=== PATIENT | female | born 1985 | race Two or more races ===

== ENCOUNTER 2024-11-09 19:19 | Emergency (ER) | payer OTHER, SELFPAY ==
[2024-11-09 19:21] VITALS: BP 128/97; PULSE 93; RESP 18; O2SAT 98; BMI 34.0
[2024-11-09 19:44] LABS: Appearance Urine Cloudy (Clear); Bilirubin Urine Negative (Negative); Blood Urine 1+ (Negative); Color Urine Yellow (Yellow); Glucose Urine Negative (Negative); Ketones Urine Negative (Negative); Leukocyte Esterase Urine 3+ (Negative); Nitrite Urine Positive (Negative); Protein Urine 1+ (Negative); Urobilinogen Urine 0.2 (0.2-1.0)
--- NOTE | 2024-11-09 19:51 | ED_ITS ---
HPI - Female Genitourinary General Time Seen by Provider: 19:51 Date Seen: 11/09/24 Chief complaint: Urogenital Problems, Female Stated complaint: burning when peeing Time Seen by Provider: 11/09/24 19:50 History of Present Illness HPI Narrative: Fabi is a very pleasant 39-year-old female previously healthy who comes to the emergency room for evaluation regarding painful urination that started today. Patient noted that she did have sexual activity 2 days ago. She notes the onset of painful urination today. She has a dull pain in her low back but has not had any fever chills or vomiting. She has not yet taken anything for discomfort. She has not noticed any blood in her urine. Related Data Home Medications ?Medication ?Instructions ?Recorded ?Confirmed hydroxyzine HCl 10 mg tablet 10 mg PO QHS 11/09/24 11/09/24 Allergies Allergy/AdvReac Type Severity Reaction Status Date / Time No Known Drug Allergies Allergy Verified 11/09/24 19:25 Review of Systems Status of ROS: Reports: 6 or more systems reviewed and unremarkable except as noted in History and below PFSH PFS Social History Smoking Status: Never smoker Do you use any of these nicotine containing products: None How often do you have a drink containing alcohol: never How often do you have six or more drinks on one occasion: Never AUDIT-C Alcohol total score: 0 Non-prescribed substance use: denies use Exam Narrative: Exam Narrative: Patient is alert and oriented. No acute distress. External ears eyes nose clear. Heart with regular rate and rhythm lungs are clear. Abdomen soft. No CVA tenderness with percussion. Moving all extremities. Const: Vital Signs, click to edit/add: Vital Signs - 24 hr 11/09/24 19:21 11/09/24 20:01 Temperature 98 F Pulse Rate [Right Pulse Oximeter] 93 Respiratory Rate 18 Blood Pressure [Ri ght Upper Arm] 128/97 H Pulse Oximetry 98 Oxygen Delivery Me thod Room Air Documenting provider has reviewed patient's vital signs: yes Course Course ED Course: Differential diagnosis includes but not limited to STI, cystitis, UTI, pyelonephritis. At this time patient has new onset of symptoms today, is absent of a fever or vomiting. Most likely represents a UTI but will add a GC chlamydia on to the urine sample as this is a new partner for the patient. Vital Signs Vital signs: Initial Vital Signs Pulse Rate 93 11/09/24 19:21 Pulse Rhythm Regular 11/09/24 19:21 Respiratory Rate 18 11/09/24 19:21 Blood Pressure 128/97 H 11/09/24 19:21 Blood Pressure Mean 107 H 11/09/24 19:21 Blood Pressure Position Sitting 11/09/24 19:21 Pulse Oximetry 98 11/09/24 19:21 Oxygen Delivery Method Room Air 11/09/24 19:21 Vital Signs Pulse Rate 93 11/09/24 19:21 Respiratory Rate 18 11/09/24 19:21 Blood Pressure 128/97 H 11/09/24 19:21 Pulse Oximetry 98 11/09/24 19:21 Oxygen Delivery Method Room Air 11/09/24 19:21 Temperature 98 F 11/09/24 20:01 Pulse Rate 93 11/09/24 19:21 Respiratory Rate 18 11/09/24 19:21 Blood Pressure 128/97 H 11/09/24 19:21 Pulse Oximetry 98 11/09/24 19:21 Oxygen Delivery Method Room Air 11/09/24 19:21 MDM - Female Genitourinary MDM Narrative Medical decision making narrative: 1. UTI-urinalysis is positive. Macrobid 100 mg p.o. b.i.d. x5 days via our [employer] machine. Recommend pushing fluids. One dose of Pyridium 200 mg is given in the ED prior to discharge. This should help significantly with the discomfort as the antibiotic is starting to work. Seek medical attention for fever vomiting and as needed. 2. Disposition-home at this time. I did add a GC chlamydia on to her urine sample and we will call her if these become positive. She does not think there is a reason that she would have an STI but this is a new partner. Lab Data Attestation: I reviewed the patient's lab results. Labs: Lab Results 11/09/24 Range/Units 19:28 Urine Color Yellow (Yellow) Urine Appearance Cloudy A (Clear) Urine pH 6.0 (5.0-8.5) Ur Specific [place] 1.020 (1.000-1.030) Urine Protein 1+ A (Negative) Urine Glucose (UA) Negative (Negative) Urine Ketones Negative (Negative) Urine Blood 1+ A (Negative) Urine Nitrite Positive A (Negative) Urine Bilirubin Negative (Negative) Urine Urobilinogen 0.2 (0.2-1.0) Ur Leukocyte Esterase 3+ A (Negative) Urine RBC 10-25 A (0-2) Urine WBC >100 A (0-5) Ur Squamous Epith Cells Few (None-Few) Urine Bacteria Moderate A (None) Discharge Plan Discharge Clinical Impression: Urinary tract infection Patient Disposition: Home, Self-Care Condition: Unchanged Additional Instructions: Start Macrobid tonight. I put that in our vending machine out front. Increase her fluid intake so that you are urinating frequently. You should have relief with pain of urination after the medication Pyridium in the ER tonight. Seek medical attention or return for fever, worsening symptoms and as needed. Prescriptions: No Action hydroxyzine HCl 10 mg tablet 10 mg PO QHS Stand Alone Forms: [employer] Info Instructions
[2024-11-09 19:58] LABS: Bacteria Urine Moderate; Squamous Epithelial Cell Urine Few (None-Few); WBC Urine >100 (0-5)
[2024-11-09 20:01] VITALS: TEMP 36.6
[2024-11-09] MEDS: PHENAZOPYRIDINE HCL 200 MG TABLET PO (20:05)
--- OUTSIDE RECORDS SUMMARY | 2024-11-09 20:09 | XMS_ITS | Encounter Summary ---
Author Organization [facility] Address [address] [place] [phone] Phone Care Team Providers Care Stacker And Sorter Operator Name Role Phone DecemberSHEILA Cook Primary Care Provider [phone] Reason for Visit * Reason Comments Sore Throat Encounter Details Date Type Department Care Team (Late st Contact Info) Description 09/26/2024 9:55 AM MARRIAGE COUNSELOR MINISTER Office Visit [facility] [address] [place] [address] Krysten Mccullough MD [address] [place], [place] [id number] Sore throat (Primary Dx); Nasal congestion Social History Tobacco Use Types Packs/Day Years Used Date Smoking Tobacco: Former Cigarettes Q uit: 02/18/2009 Smokeless Tobacco: Never Alcohol Use Standard Drinks/Week Comments No 0 (1 standard drink = 0.6 oz pur e alcohol) PHQ-2 Answer Date Recorded PHQ-2 Subtotal 0 07/27/2023 Comments No Sex and Gender Information Value Date Recorded Sex Assigned at Not on file Legal Sex Female 11:56 PM MARRIAGE COUNSELOR MINISTER Gender Identity Not on file Sexual Orientation Not on file documented as of this encounter Last Filed Vital Signs Vital Sign Reading Time Taken Comments Blood Pressure 111/77 09/26/2024 9:35 AM MARRIAGE COUNSELOR MINISTER Pulse 88 09/26/2024 9:35 AM MARRIAGE COUNSELOR MINISTER Temperature 36.9 C (98.4 F) 09/26/2024 9:35 AM MARRIAGE COUNSELOR MINISTER Respiratory Rate - - Oxygen Saturation 99% 09/26/2024 9:35 AM MARRIAGE COUNSELOR MINISTER Inhaled Oxygen Concentration - - Weight - - Height - - Body Mass Index - - documented in this encounter Patient Instructions * Patient Instructions* Krysten Mccullough MD - 09/26/2024 9:55 AM MARRIAGE COUNSELOR MINISTER Your tests are all negative today, please return in 2 days for repeat testing if symptoms worsen. Warm soups, tea, salt water gargles, tylenol as needed Zyrtec 10 mg as needed for nasal congestion Latest Reference Range & Units 09/26/24 09:40 Strep A Antigen Negative STREP, RAPID GROUP A ANTIGEN, [facility] ONLY Rpt COVID-19 Not Detected Not Detected Influenza A Not Detected Not Detected Influenza B Not Detected Not Detected RSV Not Detected Not Detected Rpt: View report in Results Review for more information IAGE COUNSELOR MINISTER IAGE COUNSELOR MINISTER IAGE COUNSELOR MINISTER documented in this encounter Progress Notes * Krysten Mccullough MD - 09/26/2024 9:55 AM CST [facility] Fabi Beck : 1985 Sex: female Medical Decision Making: ICD-10-CM 1. Sore throat J02.9 STREP, RAPID GROUP A ANTIGEN, [facility] ONLY THROAT GROUP A STREP CULTURE NPH COVID+FLU+RSV NPH COVID+FLU+RSV STREP, RAPID GROUP A ANTIGEN, [facility] ONLY 2. Nasal congestion R09.81 cetirizine (ZYRTEC) 10 mg oral tablet No follow-ups on file. History of Present Illness: Fabi Beck is a 39 y.o. female who presents for Patient Instructions: Your tests are all negative today, please return in 2 days for repeat testing if symptoms worsen. Warm soups, tea, salt water gargles, tylenol as needed Zyrtec 10 mg as needed for nasal congestion 1) sore throat - pt notes 2 day h/o ST. Pt denies cough, SOB, V/D or fever. Pt notes nasal congestion and denies rhinorrhea. Pt denies sick contacts. Pt notes significant sore throat and R sided MIKE. Viral panel/strep test negative today. 2) HTN - lisinopril 10 mg daily Sickle trait: hgb 13 Triage Note: Patient presents to clinic today for complaint of a sore throat. Symptoms started yesterday. Took Theraflu and halls cough drops for this but not helping much. Also feeling a little bit hot but unsure if she's had a temperature. Denies any known sick contacts. HME Last annual labs:05/07/24 Last murtaza: Last pap: OKQ: Would you like to become in the next year? Yes, No, Unsure or OK either way. BC: LMP: Sti scr: Last pap: Last Visit: ROS Vitals: 09/26/24 0935 BP: 111/77 Cuff Location: Left Arm Patient Position: Sitting Cuff Size: Adult - regular Pulse: 88 Temp: 36.9 ??C (98.4 ??F) SpO2: 99% Estimated body mass index is 33.37 kg/m?? as calculated from the following: Height as of 05/07/24: 1.57 m (5' 1.8). Weight as of 05/07/24: 82.2 kg (181 lb 4 oz). Physical Exam Constitutional: Appearance: Normal appearance. HENT: Head: Normocephalic and atraumatic. Right Ear: A middle ear effusion is present. Tympanic membrane is not injected. Left Ear: A middle ear effusion is present. Tympanic membrane is not injected. Nose: Congestion and rhinorrhea present. Rhinorrhea is clear. Right Turbinates: Swollen and pale. Left Turbinates: Swollen and pale. Right Sinus: No maxillary sinus tenderness. Left Sinus: Maxillary sinus tenderness present. Mouth/Throat: Mouth: Mucous membranes are moist. Pharynx: Uvula midline. Posterior oropharyngeal erythema present. Tonsils: No tonsillar exudate. Cardiovascular: Rate and Rhythm: Normal rate and regular rhythm. Heart sounds: Normal heart sounds. No murmur heard. No friction rub. No gallop. Pulmonary: Breath sounds: No wheezing, rhonchi or rales. Lymphadenopathy: Head: Right side of head: Submandibular adenopathy present. Left side of head: Submandibular adenopathy present. Neurological: Mental Status: She is alert. Results for orders placed or performed in visit on 09/26/24 NPH COVID+FLU+RSV Collection Time: 09/26/24 9:40 AM Result Value Ref Range COVID-19 Not Detected Not Detected Influenza A Not Detected Not Detected Influenza B Not Detected Not Detected RSV Not Detected Not Detected STREP, RAPID GROUP A ANTIGEN, [facility] ONLY Collection Time: 09/26/24 9:40 AM Result Value Ref Range Strep A Antigen Negative Strep A Screen performed at [facility] IAGE COUNSELOR MINISTER * Felisha Daly RN - 09/26/2024 9:30 AM CST Patient presents to clinic today for complaint of a sore throat. Symptoms started yesterday. Took Theraflu and halls cough drops for this but not helping much. Also feeling a little bit hot but unsure if she's had a temperature. Denies any known sick contacts. Swabbed for covid/flu/rsv and strep. Added to pool schedule. Felisha Daly RN, 09/26/2024 9:42 AM IAGE COUNSELOR MINISTER documented in this encounter Plan of Treatment Not on file documented as of this encounter Goals Goal Patient Goal Type Associated Problems Recent Progress Patient-Stated? Author Mental Health (Customize) Mental Health Other specified personality disorder (mixed personality features) No Pia Doran, TRINY Note: Treatment Plan: Borderline Personality Disorder/Black and White Thinking Goals: Learn and practice coping skills to deal with mood fluctuations Replace black and white thinking with increased ability to accept ambiguity Objectives: Develop and implement at least five coping skills to deal with mood fluctuations. Identify either/or thinking. Identify five things that are helpful in accepting ambiguity. Track and label at least two cognitive distortions that maintain negative self view and replace with reality based rational thoughts. Practice assertiveness skills at least daily. Verbalize understanding of the purpose and process of therapy. Treatment Strategies: Individual Therapy, Group Therapy and Medication Management Treatment Plan: Depression Goals: Develop healthy self views and patterns of thinking in order to prevent relapse into depression Improve interpersonal relationships to serve as a buffer against relapse and to provide support during depressive episodes Increase social activity and physical activity Improve self-esteem issues that may underlie depressed mood (see separate tx plan for low self-esteem Practice healthy coping skills Understand mental health symptoms and treatment Objectives: Identify at least five automatic thoughts that contribute to depressive schemas. Learn and practice labeling and restructuring of at least three cognitive distortions. Take medications as prescribed and follow up with necessary providers. Treatment Strategies: Individual Therapy and Medication Management documented as of this encounter Procedures Procedure Name Priority Date/Time Associated Diagnosis Comments STREP, RAPID GROUP A ANTIGEN, [facility] ONLY Routine 09/26/2024 9:40 AM MARRIAGE COUNSELOR MINISTER Sore throat NPH COVID+FLU+RSV Routine 09/26/2024 9:4 0 AM MARRIAGE COUNSELOR MINISTER Sore throat documented in this encounter Results * THROAT GROUP A STREP CULTURE (09/26/2024 9:40 AM MARRIAGE COUNSELOR MINISTER) Final Report No Beta hemolytic Streptococcus Group A, C, or G isolated. [facility] Throat Swab 09/26/2024 9:40 AM MARRIAGE COUNSELOR MINISTER 09/26/2024 1:58 PM MARRIAGE COUNSELOR MINISTER us Low Frausto II, MD LAB MICROBIOLOGY Ashia l Result [facility] [address] [id number] * NPH COVID+FLU+RSV (09/26/2024 9:40 AM MARRIAGE COUNSELOR MINISTER) COVID-19 Not Detected Not Detected [facility] Comment: Testing performed on [employer] GeneXpert using RT-PCR as authorized by the FDA under an Emergency Use Authorization (EUA) for Coronavirus Disease-2019 during the Public Health Emergency. A Non-Detected test result does not exclude the possibility of infection due to improper specimen collection or organisms that may be below the sensitivity of the test. Influenza A Not Detected Not Detected [facility] Influenza B Not Detected Not Detected [facility] Comment: Testing performed on [employer] Gene[employer]pert using RT-PCR as authorized by the FDA under an Emergency Use Authorization (EUA) for Coronavirus Disease-2019 during the Public Health Emergency. A Non-Detected test result does not exclude the possibility of infection due to improper specimen collection or organisms that may be below the sensitivity of the test. RSV Not Detected Not Detected [facility] Comment: Testing performed on [employer] Gene[employer]pert using RT-PCR as authorized by the FDA under an Emergency Use Authorization (EUA) for Coronavirus Disease-2019 during the Public Health Emergency. A Non-Detected test result does not exclude the possibility of infection due to improper specimen collection or organisms that may be below the sensitivity of the test. Nasopharyngeal Swab 09/26/19 9:40 AM MARRIAGE COUNSELOR MINISTER 09/26/2024 9:43 AM MARRIAGE COUNSELOR MINISTER Narrative [facility] - 09/26/2024 10:40 AM MARRIAGE COUNSELOR MINISTER Includes COVID, FLU and RSV Low Frausto II, MD LABORATORY Final Result Performing Organization Address [facility] de Phone Number [facility] [address] [place] [address] * STREP, RAPID GROUP A ANTIGEN, [facility] ONLY (09/26/2024 9:40 AM MARRIAGE COUNSELOR MINISTER) Strep A Antigen Negative [facility] Comment:This assay was perfo rmed using an FDA-cleared direct antigen test. Strep A Screen performed at [facility] Comment:Testing Performed at [facility] [address] [place] [address] Throat Swab 09/26/2024 9:40 AM MARRIAGE COUNSELOR MINISTER 09/26/2024 9:43 AM MARRIAGE COUNSELOR MINISTER Low Frausto II, MD LABORATORY Final Result Performing Organization Address [facility] de Phone Number [facility] [address] [place] [phone] documented in this encounter Visit Diagnoses Diagnosis Sore throat- Primary Acute pharyngitis Nasal congestion Other diseases of nasal cavity and sinuses documented in this encounter Additional Health Concerns Infection Onset Date Last Indicated Resolved Time SARS-CoV-2 Rule-Out 09/26/2024 09/26/2024 09/26/19 25 10:40 AM MARRIAGE COUNSELOR MINISTER Assessment Noted Time PHQ-9 Depression Total Score: 0 07/27/20 23 10:02 AM MARRIAGE COUNSELOR MINISTER PHQ-2 Depression Total Score: 0 07/27/20 23 10:02 AM MARRIAGE COUNSELOR MINISTER documented as of this encounter Care Teams Stacker And Sorter Operator Relationship Specialty Start Date End Date DecemberNADIA CNP [address] [place] [address] PCP - General Family Medicine 12/12/22 documented as of this encounter
--- OUTSIDE RECORDS SUMMARY | 2024-11-09 20:09 | XMS_ITS | Clinical Summary ---
Author Organization [facility] Address [address] [place] [id number] Care Team Providers Care Cell Cleaner Name Role Phone [place], [facility] Primary Ca re Provider [facility] Unavailabl e Allergies No known active allergies Medications TOPIRAMATE PO Take 50 mg by mouth 2 times daily Active Social History Tobacco Use Types Packs/Day Years Used Date Smoking Tobacco: Never Smokeless Tobacco: Never Alcohol Use Standard Drinks/Week Comments No 0 (1 standard drink = 0.6 oz pur e alcohol) Adolescent Education Answer Date Record ed Getting School Help Needed Not on file 05/12 Comments No Sex and Gender Information Value Date Recorded Sex Assigned at Not on file Legal Sex Female 5:14 PM WEB SITE ADMIN Gender Identity Not on file Sexual Orientation Not on file Last Filed Vital Signs Vital Sign Reading Time Taken Comments Blood Pressure 146/108 12/27/2022 1:57 AM CDT Pulse 90 12/27/2022 1:57 AM CDT Temperature 36.9 C (98.4 F) 12/26/2022 9:59 PM CDT Respiratory Rate 18 12/27/2022 1:57 AM CDT Oxygen Saturation 100% 12/27/2022 1:57 AM CDT Inhaled Oxygen Concentration - - Weight 81.6 kg (180 lb) 12/26/2022 9:59 PM CDT Height 154.9 cm (5' 1) 12/26/2022 9:59 PM CDT Body Mass Index 34.01 12/26/2022 9:59 PM CDT Plan of Treatment Health Maintenance Due Date Last Done Comments ADVANCE CARE PLANNING 1985 ANNUAL REVIEW OF HM ORDERS 1985 MAMMO SCREENING 1985 YEARLY PREVENTIVE VISIT 1987 HIV SCREENING 1999 HEPATITIS C SCREENING 2002 HEPATITIS B IMMUNIZATION (1 of 3 - 19+ 3-dose series) 2003 PAP 2005 DTAP/TDAP/TD IMMUNIZATION (1 - Tdap) 2009 COVID-19 Vaccine (1 - season) 2024 INFLUENZA VACCINE (#1) 2024 3, 09/20/2011, 09/20/2011, Additional history exists LIPID 2024 PHQ-2 (once per calendar year) 2024 DIABETES SCREENING 12/26/2025 12/26/2022 ZOSTER IMMUNIZATION (1 of 2) 2034 HPV IMMUNIZATION Aged Out No longer e ligible based on patient's age to complete this topic MENINGITIS IMMUNIZATION Aged Out No l onger eligible based on patient's age to complete this topic Pneumococcal Vaccine: Pediatrics (0 to 5 Years) and At-Risk Patients (6 to 49 Years) Aged Out No longer eligible based on patient's age to complete this topic Procedures Procedure Name Priority Date/Time Associated Diagnosis Comments COMPREHENSIVE METABOLIC PANEL STAT 12/26/2022 11:26 PM CDT from Last 3 Months or Most Recently Relevant to Health Maintenance Results * (ABNORMAL) Comprehensive metabolic panel (12/26/2022 11:26 PM CDT) Sodium 136 136 - 145 mmol/L 12/27/2022 12:10 AM CDT [facility] Potassium 3.7 3.4 - 5.3 mmol/L 12/27/2022 12:10 AM CDT [facility] Chloride 101 98 - 107 mmol/L 12/27/2022 12:10 AM CDT [facility] Carbon Dioxide (CO2) 25 22 - 29 mmol/L 12/27/2022 12:10 AM CDT [facility] Anion Gap 10 7 - 15 mmol/L 12/27/2022 12:10 AM CDT [facility] Urea Nitrogen 10.9 6.0 - 20.0 mg/dL 12/27/2022 12:10 AM CDT [facility] Creatinine 0.66 0.51 - 0.95 mg/dL 12/27/2022 12:10 AM CDT LABORATORY Calcium 9.4 8.6 - 10.0 mg/dL 12/27/2022 12:10 AM CDT LABORATORY Glucose 147(H) 70 - 99 mg/dL 12/27/2022 12:10 AM CDT [facility] Alkaline Phosphatase 102 35 - 104 U/L 12/27/2022 12:10 AM CDT LABORATORY AST 69(H) 10 - 35 U/L 12/27/2022 12:10 AM CDT LABORATORY Comment:Specimen is hemolyze d which can falsely elevate AST. Analysis of a non-hemolyzed specimen may result in a lower value. ALT 97(H) 10 - 35 U/L 12/27/2022 12:10 AM CDT LABORATORY Protein Total 7.3 6.4 - 8.3 g/dL 12/27/2022 12:10 AM CDT LABORATORY Albumin 4.5 3.5 - 5.2 g/dL 12/27/2022 12:10 AM CDT LABORATORY Bilirubin Total 0.2 <=1.2 mg/dL 12/27/2022 12:10 AM CDT LABORATORY GFR Estimate >90 >60 mL/min/1.7 3m2 12/27/2022 12:10 AM CDT LABORATORY Comment:eGFR calculated usin 2020 CKD-EPI equation. Blood BLOOD SPECIMEN / Unknown Venipuncture / Unknown 12/26/2022 11:26 PM CDT 12/26/2022 11:49 PM CDT Spencer Giordano MD LAB - BLOOD ORDERABLES Final Res ult LABORATORY [facility] [address] Lab (1st floor, no room number) [place] [address], [facility] [phone] from Last 3 Months or Most Recently Relevant to Health Maintenance Care Teams Cell Cleaner Relationship Specialty Start Date End Date [facility] [address] [place] [address] PCP - General 04/18/20 [facility] [address] [place] [address] 04/18/20
--- OUTSIDE RECORDS SUMMARY | 2024-11-09 20:09 | XMS_ITS | Referral Summary ---
Author Organization [facility] Address [address] [place] [address] Phone Care Team Providers Care Advertising Solicitor Name Role Phone December SHEILA ZUNIGA Primary Care Provider [phone] Source Comments [employer] is fully rolled out on [employer]. Last update 01/23/09.[facility] Encounters Date Type Department Care Team Description 10/28/2024 Orders Only [facility] [address] [place] [address] Vinita Murrell APRN, CNP 09/26/2024 9:43 AM DUAL RATE SUPERVISOR - 09/26/2024 11:59 PM DUAL RATE SUPERVISOR Hospital Encounter [facility] [address] [facility] [address] [place] [address] Low Frausto II, MD Reflab, Nph Discharge Disposition: Discharged to home or self care 09/26/2024 Travel 09/26/2024 9:55 AM DUAL RATE SUPERVISOR Office Visit [facility] [address] [place] [address] Krysten Mccullough MD Sore throat (Primary Dx); Nasal congestion from Last 3 Months Allergies No known active allergies Medications * Be aware that medications may not be up to date as of this document. Always verify current medications with patient. Multiple Vitamin (DAILY MULTIVITAMIN) oral TABSIndications :Nutrition disorder Take 1 tablet by mouth daily. 100 tablet 3 04/11/2024 1:48 PM CDT Active Combs-3 Fatty Acids (FISH OIL) 1200 MG oral capsuleIndicati ons:Nutrition disorder Take 1 capsule by mouth daily. 60 capsule 6 04/11/2024 1:48 PM CDT 3 Active albuterol (PROVENTIL HFA) 108 (90 BASE) mcg/act inhalation inhaler Inhale 2 puffs every 4 hours as needed for shortness of breath. 6.7 g 1 4 Active ibuprofen (MOTRIN;ADVIL) 400 mg oral TABS Take 1 tablet (400 mg) by mouth every 6 hours as needed for Pain. 60 tablet 2 09/19/2024 12:02 PM DUAL RATE SUPERVISOR 4 Active loratadine (CLARITIN) 10 mg oral tabletIndicatio ns:Medication refill TAKE ONE TABLET BY MOUTH EVERY DAY FOR ALLERGIES 90 tablet 3 09/19/2024 12:02 PM DUAL RATE SUPERVISOR 4 03/29/20 25 Active fluticasone propionate (FLONASE) 50 mcg/act nasal suspensionIndic ations:Nasal congestion Use 1 spray in each nostril daily. 16 g 8 09/19/2024 12:02 PM DUAL RATE SUPERVISOR 4 Active lisinopril (PRINIVIL; ZESTRIL) 5 mg oral tabletIndicatio ns:Benign essential HTN Take 2 tablets (10 mg) by mouth daily. 30 tablet 09/19/2024 12:02 PM DUAL RATE SUPERVISOR 4 Active cetirizine (ZYRTEC) 10 mg oral tabletIndicatio ns:Nasal congestion Take 1 tablet (10 mg) by mouth daily as needed for Allergy Symptoms. 30 tablet 09/26/2024 11:15 AM DUAL RATE SUPERVISOR 5 Active hydrOXYzine pamoate (VISTARIL) 25 mg oral capsule Take 1 capsule (25 mg) by mouth every 4 hours as needed. 90 capsule 3 5 Active hydrOXYzine (ATARAX;VISTARI L) 25 mg oral tablet Take 1 tablet (25 mg) by mouth every 4 hours as needed for Anxiety. 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 Progress will be measured by self-report, observation, and diary card. Patient will identify at least three triggers to depressed mood Patient will identify and challenge at least three thought distortions that contribute to feelings of sadness and hopelessness. Patient will learn and master three self-regulation skills. 2) Patient will demonstrate ability to manage worry and eliminate impulsive behaviors from 30% of the time to 100% of the time for three consecutive months. Progress will be measured by self-report and diary card. Patient will identify and challenge at least three thought-distortions that contribute to worry Patient will develop a hierarchy of worry. Patient will journal weekly Patient will read psychoeducational and motivational readings, reflecting on increased awareness. 3) Patient will improve self-esteem and increase confidence. Patient will decrease critical and judgmental self-statements from three times a week to 0 times a week for three consecutive months. Progress will be measured by self-report and observation. Patient will participate in restructuring of at least three thought-distortions related to self-worth and value. Patient will learn to value self and minimize critical inner voice by using mindfulness skills and cognitive skills. Patient will identify at least two origins of low self-esteem. Patient will avoid using negative self-statements and replace with positive ones on a daily basis Patient will learn and master at least three interpersonal effectiveness skills. 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 Progress will be measured by self-report, observation, and diary card. Patient will identify at least three triggers to depressed mood Patient will identify and challenge at least three thought distortions that contribute to feelings of sadness and hopelessness. Patient will learn and master three self-regulation skills. 2) Patient will demonstrate ability to manage worry and eliminate impulsive behaviors from 30% of the time to 100% of the time for three consecutive months. Progress will be measured by self-report and diary card. Patient will identify and challenge at least three thought-distortions that contribute to worry Patient will develop a hierarchy of worry. Patient will journal weekly Patient will read psychoeducational and motivational readings, reflecting on increased awareness. 3) Patient will improve self-esteem and increase confidence. Patient will decrease critical and judgmental self-statements from three times a week to 0 times a week for three consecutive months. Progress will be measured by self-report and observation. Patient will participate in restructuring of at least three thought-distortions related to self-worth and value. Patient will learn to value self and minimize critical inner voice by using mindfulness skills and cognitive skills. Patient will identify at least two origins of low self-esteem. Patient will avoid using negative self-statements and replace with positive ones on a daily basis Patient will learn and master at least three interpersonal effectiveness skills. Generalized anxiety disorder 11/30/2009 Alcohol Abuse, early partial remission 9 Cocaine abuse, sustained full remission 04/15/20 09 Resolved Problems Problem Noted Date Diagnosed Date Resolved Date Single major depressive epis ode, in partial or unspecified remission 10/24/2013 07/05/2016 Major depressive disorder, r ecurrent episode, moderate (CMS) 12/22/2011 10/24/2013 Borderline personality 04/15/200905/01 Depressive Disorder 04/15/2009 06/04/20 12 Immunizations Immunization Administration Dates Next Due Influenza Vaccine - Peds (6 - 35 months) Trivalent 09/20/2011,05/26/2009 Influenza Vaccine - Peds (6 - 35 months; Preservative Free) Trivalent 06/30/2006 Influenza Vaccine 6 Months t hrough Adult - Prefilled 06/30/2006 Influenza Vaccine, Unspecified 3,09/20/2011,05/26/2009,2005 Tetanus Toxoid, Reduced Diph theroid Toxoid Acellular Pertussis 06/02/2023,09/20/2011 Social History Tobacco Use Types Packs/Day Years Used Date Smoking Tobacco: Former Cigarettes Q uit: 02/18/2009 Smokeless Tobacco: Never Tobacco Cessation:Counseling Given: Yes Alcohol Use Standard Drinks/Week Comments No 0 (1 standard drink = 0.6 oz pur e alcohol) PHQ-2 Answer Date Recorded PHQ-2 Subtotal 0 07/27/2023 Comments No Sex and Gender Information Value Date Recorded Sex Assigned at Not on file Legal Sex Female 11:56 PM DUAL RATE SUPERVISOR Gender Identity Not on file Sexual Orientation Not on file Last Filed Vital Signs Vital Sign Reading Time Taken Comments Blood Pressure 111/77 09/26/2024 9:35 AM DUAL RATE SUPERVISOR Pulse 88 09/26/2024 9:35 AM DUAL RATE SUPERVISOR Temperature 36.9 C (98.4 F) 09/26/2024 9:35 AM DUAL RATE SUPERVISOR Respiratory Rate 16 03/22/2016 1:41 PM CDT Oxygen Saturation 99% 09/26/2024 9:35 AM DUAL RATE SUPERVISOR Inhaled Oxygen Concentration - - Weight 82.2 kg (181 lb 4 oz) 05/07/2024 11:14 AM CDT Height 157 cm (5' 1.8) 05/07/2024 11:14 AM CDT Body Mass Index 33.37 05/07/2024 11:14 AM CDT Plan of Treatment Not on file Goals Goal Patient Goal Type Associated Problems Recent Progress Patient-Stated? Author Mental Health (Customize) Mental Health Other specified personality disorder (mixed personality features) No Pia Doran, AUTOMOTIVE FUEL INJECTION SERVICER Note: Treatment Plan: Borderline Personality Disorder/Black and [...] Treatment Strategies: Individual Therapy and Medication Management Procedures Procedure Name Priority Date/Time Associated Diagnosis Comments PC LAB CULTURE TYPING; IMMUNOLOGIC MTD, PER ANTISERUM Routine 09/26/2024 9:40 AM DUAL RATE SUPERVISOR Sore throat STREP, RAPID GROUP A ANTIGEN, [facility] ONLY Routine 09/26/2024 9:40 AM DUAL RATE SUPERVISOR Sore throat NPH COVID+FLU+RSV Routine 09/26/2024 9:4 0 AM DUAL RATE SUPERVISOR Sore throat PC LAB NPH LIPID PANEL Routine 05/07/2024 12:00 PM CDT Encounter for health-related screening PC LAB PAP SCREENING, IMAGED, THIN PREP Routine 04/02/2021 10:17 AM CDT Preventative health care HIV 1/2 ANTIBODY Routine 09/21/2011 10:4 0 AM DUAL RATE SUPERVISOR Routine physical examination from Last 3 Months or Most Recently Relevant to Health Maintenance Results * THROAT GROUP A STREP CULTURE (09/26/2024 9:40 AM DUAL RATE SUPERVISOR) Final Report No Beta hemolytic Streptococcus Group A, C, or G isolated. [facility] Throat Swab 09/26/2024 9:40 AM DUAL RATE SUPERVISOR 09/26/2024 1:58 PM DUAL RATE SUPERVISOR us Low Frausto II, MD LAB MICROBIOLOGY Ashia ring Result [facility] [address] [place] [address] * STREP, RAPID GROUP A ANTIGEN, [facility] ONLY (09/26/2024 9:40 AM DUAL RATE SUPERVISOR) Strep A Antigen Negative [facility] Comment:This assay was perfo rmed using an FDA-cleared direct antigen test. Strep A Screen performed at [facility] Comment:Testing Performed at [facility] [address] [place] [id number] Throat Swab 09/26/2024 9:4 0 AM DUAL RATE SUPERVISOR 09/26/2024 9:43 AM DUAL RATE SUPERVISOR Low Frausto II, MD LABORATORY Final Result Performing Organization Address [facility] de Phone Number [facility] [address] [place] [id number] * NPH COVID+FLU+RSV (09/26/2024 9:40 AM DUAL RATE SUPERVISOR) Pathologist [facility] COVID-19 Not Detected Not Detected [facility] Comment: Testing performed on CepGekkoid GeneXpert using RT-PCR as authorized by the FDA under an Emergency Use Authorization (EUA) for Coronavirus Disease-2019 during the Public Health Emergency. A Non-Detected test result does not exclude the possibility of infection due to improper specimen collection or organisms that may be below the sensitivity of the test. Influenza A Not Detected Not Detected [facility] Influenza B Not Detected Not Detected [facility] Comment: Testing performed on CepGekkoid GeneXpert using RT-PCR as authorized by the FDA under an Emergency Use Authorization (EUA) for Coronavirus Disease-2019 during the Public Health Emergency. A Non-Detected test result does not exclude the possibility of infection due to improper specimen collection or organisms that may be below the sensitivity of the test. RSV Not Detected Not Detected [facility] Comment: Testing performed on CepGekkoid GeneXpert using RT-PCR as authorized by the FDA under an Emergency Use Authorization (EUA) for Coronavirus Disease-2019 during the Public Health Emergency. A Non-Detected test result does not exclude the possibility of infection due to improper specimen collection or organisms that may be below the sensitivity of the test. Nasopharyngeal Swab 09/26/19 9:40 AM DUAL RATE SUPERVISOR 09/26/2024 9:43 AM DUAL RATE SUPERVISOR Narrative [facility] - 09/26/2024 10:40 AM DUAL RATE SUPERVISOR Includes COVID, FLU and RSV Low Frausto II, MD LABORATORY Final Result Performing Organization Address [facility] de Phone Number [facility] [address] [place] [phone] * (ABNORMAL) NPH LIPID PANEL (05/07/2024 12:00 PM CDT) Cholesterol 165 <=200 mg/dL [facility] Comment: Desirable Interpretive Data <200 Desirable 200-239 Borderline high >=240 High Triglyceride 114 <=150 mg/dL [facility] Comment: Normal Interpretive Data <150 Normal 150-199 Borderline high 200-499 High >=500 Very high HDL 39(L) 40 - 60 mg/dL [facility] Comment: Abnormal Interpretive Data Normal > 40 Male > 50 Female Non-HDL Cholesterol Calculated 126 <=130 mg/dL [facility] Comment: Desirable Interpretive Data <130 Desirable 130-159 Above desirable 160-189 Borderline high 190-219 High >=220 Very high Calc LDL 103(H) <=100 mg/dL [facility] Comment: Above desirable Interpretive Data <100 Desirable 100-129 Above desirable 130-159 Borderline high 160-189 high >=190 Very High Blood 05/07/2024 12:0 0 PM CDT 05/07/2024 12:59 PM CDT us December Hang HEAD UP OPERATOR, CHEMICAL EQUIPMENT REPAIRER LABORATORY Final Result [facility] [address] [place] [address] * PAP TEST (04/02/2021 10:17 AM CDT) Pap Final Pap Smear Report Collection Date: 04/02/2021 10:17 CDT Ordering Physician: IVA CHAMBERLAIN Received Date: 04/05/2021 08:38 CDT Accession Number: [id number] Pap Test Report Final Diagnosis: NEGATIVE FOR INTRAEPITHELIAL LESION OR MALIGNANCY High-risk HPV co-testing will be performed and separately reported by the [facility] Clinical Laboratory. * Report Electronically Signed By * BERNIE Morales (ASCP) Screening Performed By: BERNIE Morales (ASCP) [facility] 04.08.2021 14:58 Diagnosis Comment: _ This Pap test was screened by the ThinPrep Imaging System ([employer] prior to manual review by a power barker operator and/or pathologist. - This Pap test is a screening test with inherent false negative and false positive results and should not be used as the sole means to detect cervical cancer. Adequacy Interpretation: Satisfactory for evaluation, endocervical component identified. Specimen Type: ThinPrep liquid-based Pap test [facility] AP Specimen CERVIX UTERI STRUCTURE / Unknown 04/02/2021 10:17 AM CDT 04/05/2021 8:38 AM CDT Comment:PAP TEST Iva Chamberlain APRN, CNP LAB PATHOLOGY Final Resu lt Performing Organization Address City/[facility]/ZIP Co de Phone Number [address] [address] * HIV 1/2 ANTIBODY (09/21/2011 10:40 AM DUAL RATE SUPERVISOR) HIV Ab Non Reactive Non Reactive [facility] Comment: Performance characteristics have not been established with this test on pat ients less than 2 years of age. Blood specimen (specimen) 09/21/2011 10:40 AM DUAL RATE SUPERVISOR 09/21/2011 1:42 PM DUAL RATE SUPERVISOR us Anca Rinaldi MD LABORATORY Final Result Performing Organization Address City/[facility]/ZIP Co de Phone Number [address] [phone] from Last 3 Months or Most Recently Relevant to Health Maintenance Care Teams Advertising Solicitor Relationship Specialty Start Date End Date DecemberNADIA CNP [address] [place] [address] PCP - General Family Medicine 12/12/22
--- OUTSIDE RECORDS SUMMARY | 2024-11-09 20:09 | XMS_ITS | Encounter Summary ---
Author Organization [email or web address] Address [address] [place] [address] Care Team Providers Care Body Make Up Artist Name Role Phone Clinician, Not Found MD Primary Care Provider Un available Reason for Visit * Reason Comments Pharyngitis Encounter Details Date Type Department Care Team (Late st Contact Info) Description 09/27/2024 9:00 AM SUPERINTENDENT CIRCUS Office Visit [place] [facility] [address] [place] [address] Aimee Gerard PA-C [address] [place] [address] Chest wall pain; Viral URI; Sore throat Social History Tobacco Use Types Packs/Day Years Used Date Smoking Tobacco: Former Cigarettes Q uit: 11/18/2005 Smokeless Tobacco: Never Alcohol Use Standard Drinks/Week Comments No 0 (1 standard drink = 0.6 oz pur e alcohol) Comments No Sex and Gender Information Value Date Recorded Sex Assigned at Not on file Legal Sex Female 7:06 AM CDT Gender Identity Not on file Sexual Orientation Not on file Occupation Industry Job Start Date Job End Date Homemaker Not on file Not on file Not on file documented as of this encounter Last Filed Vital Signs Vital Sign Reading Time Taken Comments Blood Pressure 106/77 09/27/2024 8:45 AM SUPERINTENDENT CIRCUS Pulse 82 09/27/2024 8:45 AM SUPERINTENDENT CIRCUS Temperature 36.7 C (98.1 F) 09/27/2024 8:45 AM SUPERINTENDENT CIRCUS Respiratory Rate 20 09/27/2024 8:45 AM SUPERINTENDENT CIRCUS Oxygen Saturation 100% 09/27/2024 8:45 AM SUPERINTENDENT CIRCUS Inhaled Oxygen Concentration - - Weight - - Height - - Body Mass Index - - documented in this encounter Patient Instructions * Attachments The following attachments cannot be sent through Care Everywhere. * URI (Upper Respiratory Infection) (Irish) * Chest Pain: Musculoskeletal (Irish) documented in this encounter Progress Notes * Aimee Gerard PA-C - 09/27/2024 9:00 AM CST Images from the original note were not included. URGENT CARE VISIT SUBJECTIVE: Fabi Beck is a 39 y.o. female presents for 2 Three day history of sore throat and nasal congestion. Sore throat is bothering her the most. No fever. Doing saltwater gargles and drinking tea. No cough. Patient seen yesterday at a different clinic and tested negative for strep, COVID, influenza, RSV. No worsening of symptoms but no improvement.Tolerating secretions and fluids She mentions on a side note that over the past couple of days she has noticed a brief left-sided anterior chest pain that she describes is random and it occurs 1 or 2 times a day and it lasts a few minutes. She describes it as a slight burning sensation. No shortness of breath. No exertional chest pain. No family history or personal history of cardiac disease. Past Medical History: Patient Active Problem List Diagnosis Major depression (HRC) Generalized anxiety disorder (HRC) Arthralgia of right knee Fibromyalgia Abnormal uterine bleeding (AUB) Menorrhagia with regular cycle Obstructive sleep apnea Family History: History reviewed. No pertinent family history. Smoking or Smoke Exposure: Social History Socioeconomic History Marital status: Single Spouse name: Not on file Number of children: 3 Years of education: Not on file Highest education level: Not on file Occupational History Occupation: Homemaker Tobacco Use Smoking status: Former Current packs/day: 0.00 Types: Cigarettes Quit date: 11/18/2005 Years since quittin.8 Smokeless tobacco: Never Vaping Use Vaping status: Never Used Substance and Sexual Activity Alcohol use: No Drug use: No Sexual activity: Yes Partners: Male control/protection: Surgical Comment: tubal ligation 07/26 Other Topics Concern Not on file Social History Narrative Merged History Encounter Social Determinants of Health Financial Resource Strain: Not on file Food Insecurity: Not on file Transportation Needs: Not on file Physical Activity: Not on file Stress: Not on file Social Connections: Not on file Intimate Partner Violence: Not on file Housing Stability: Not on file Adverse Drug Reactions: No Known Allergies. Medications: Current Outpatient Medications Medication Sig Dispense Refill acetaminophen (TYLENOL) 500 MG tablet Take 1-2 Tablets (500-1,000 mg) by mouth every 4 hours as needed for Pain. Maximum acetaminophen dose is 4000 mg in 24 hours ALBUterol sulfate HFA 108 (90 Base) MCG/ACT inhaler Inhale 1-2 Puffs every 4 hours as needed for Wheezing. 1 Each 0 ALBUterol sulfate HFA 108 (90 Base) MCG/ACT inhaler Inhale 1-2 Puffs every 4 hours as needed for Wheezing. Calcium Carb-Cholecalciferol (OYSTER SHELL CALCIUM W/D) 500-5 MG-MCG TABS Take 1 Tablet by mouth two times a day. (Patient not taking: Reported on 09/27/2024) cetirizine (ZYRTEC) 10 MG tablet Take 1 Tablet (10 mg) by mouth daily. DULoxetine (CYMBALTA) 20 MG capsule Take 1 Capsule (20 mg) by mouth daily. (Patient not taking: Reported on 08/01/2024) 30 Capsule 3 fluticasone propionate (FLONASE) 50 MCG/ACT nasal solution 1 [place] by Nasal route daily. hydrOXYzine HCl (ATARAX) 25 MG tablet Take 1 Tablet (25 mg) by mouth. ibuprofen (MOTRIN) 400 MG tablet Take 1 Tablet (400 mg) by mouth. lidocaine viscous (XYLOCAINE) 2 % solution Take 5 mL by mouth every 3 hours as needed for Pain (sore throat). Can dilute with a small amount of water and swish/gargle and spit 60 mL 0 lisinopril (ZESTRIL) 5 MG tablet Take 1 Tablet (5 mg) by mouth two times a day. Loratadine (CLARITIN OR) multivitamin (THERAGRAN) tablet Take 1 Tablet by mouth daily. [place]-3 Fatty Acids (FISH OIL) 1200 MG capsule Take 1 Capsule (1,200 mg) by mouth daily. ondansetron (ZOFRAN-ODT) 4 MG disintegrating tablet Take 1 Tablet (4 mg) by mouth every 8 hours as needed for Nausea. (Patient not taking: Reported on 09/27/2024) 10 Tablet 0 progesterone (PROMETRIUM) 100 MG capsule Take 3 Capsules (300 mg) by mouth daily at bedtime. No current facility-administered medications for this visit. OBJECTIVE: Vital Signs: BP 106/77 Pulse 82 Temp 36.7 ??C (98.1 ??F) Resp 20 SpO2 100% General: Well appearing and in no distress. Skin: no rashes, no purpura Head: normocephalic, atraumatic Eyes: PEERL, normal EOMs, no eyelid swelling Ears: Bilateral external ears are normal appearing . Ear canals have no erythema, swelling or foreign bodies. Right TM is pearly allred with normal light reflex. Left TM is pearly green with normal light reflex. Nose: Mildly congested Mouth: no lip swelling, mucus membranes moist, no lesions, normal dentition Throat: no erythema, soft palate appears normal without swelling, no lesions, airway patent, no tonsil erythema or swelling, no trismus Neck: supple, no lymphadenopathy, no rigidity, no thyroidmegaly, no tenderness , no masses Lungs: CTA, no rhonchi, no rales, breathing not labored Heart: RRR, no murmurs click or rubs Extremities: no clubbing, cyanosis or edema/swelling. Musculoskeletal: moves all extremities without difficultly, no deformity. Tender on the left anterior chest wall which is the area of pain that she is having and it reproduces the symptoms of chest pain that she is having. Neuro: no focal neurological deficits Psych: normal behavior appropriate for visit LABS/IMAGING/INTERVENTIONS: 12 lead EKG read and reviewed by me today showing normal sinus rhythm Results for orders placed or performed in visit on 09/27/24 ECG 12-LEAD ROUTINE (Non Lab to perform-Today)-STAT Result Value Ref Range Ventricular Rate 76 BPM Atrial Rate 76 BPM P-R Interval 136 ms QRS Duration 86 ms QT 398 ms QTC 447 ms P [place] 6 degrees R [place] -1 degrees T [place] 2 degrees No results found. ASSESSMENT: 1. Chest wall pain 2. Viral URI 3. Sore throat PLAN: Medication List Accurate as of September 27, 2024 10:39 AM. If you have any questions, ask your nurse or doctor. START taking these medications lidocaine viscous 2 % solution Commonly known as: XYLOCAINE Take 5 mL by mouth every 3 hours as needed for Pain (sore throat). Can dilute with a small amount of water and swish/gargle and spit Started by: Aimee Gerard CONTINUE taking these medications acetaminophen 500 MG tablet Commonly known as: TYLENOL * ALBUterol sulfate HFA 108 (90 Base) MCG/ACT inhaler * ALBUterol sulfate HFA 108 (90 Base) MCG/ACT inhaler Inhale 1-2 Puffs every 4 hours as needed for Wheezing. cetirizine 10 MG tablet Commonly known as: ZyrTEC CLARITIN OR DULoxetine 20 MG capsule Commonly known as: CYMBALTA Take 1 Capsule (20 mg) by mouth daily. Fish Oil 1200 MG capsule fluticasone propionate 50 MCG/ACT nasal solution Commonly known as: FLONASE hydrOXYzine HCl 25 MG tablet Commonly known as: ATARAX ibuprofen 400 MG tablet Commonly known as: MOTRIN lisinopril 5 MG tablet Commonly known as: ZESTRIL multivitamin tablet ondansetron 4 MG disintegrating tablet Commonly known as: ZOFRAN-ODT Take 1 Tablet (4 mg) by mouth every 8 hours as needed for Nausea. Oyster Shell Calcium w/D 500-5 MG-MCG Tabs progesterone 100 MG capsule Commonly known as: PROMETRIUM * This list has 2 medication(s) that are the same as other medications prescribed for you. Read thedirections carefully, and ask your doctor or other care provider to review them with you. Where to Get Your Medications These medications were sent to [facility] [address] [address] lidocaine viscous 2 % solution Orders Placed This Encounter Procedures ECG 12-LEAD ROUTINE (Non Lab to perform-Today)-STAT This SmartLink can only be used on hospital encounters. Medical decision making and workup and evaluation discussed with patient today in urgent care. Symptomatic and supportive care discussed for viral upper respiratory illness. Do not have any clinical concerns for any deep space throat infection or Darrius's angina. Patient reports strep testing negative. We discussed viral URI and continue symptomatic and supportive care. Discussed fluids, humidification, [id number] analgesics, or lozenges. She was prescribed lidocaine viscous solution to gargle and spit with his needed every 3 hours. Reviewed chest wall pain. Not have clinical concerns for cardiac given the quality of pain and reproducible chest wall pain. No clinical concern for PE. Discussed with patient if she has significantly worsening chest pain or develops shortness a breath to go to the emergency room. Otherwise localized treatment such as stretching and [id number] NSAIDs can be used. Discussed with patient, recommend acute medical re-evaluation if not improving as expected or if develops any significant new or worsening symptoms. Follow up with urgent care as needed. Patient agreeable with plan. RINTENDENT CIRCUS documented in this encounter Nursing Notes * Vickie Medeiros RN - 09/27/2024 9:00 AM CST Fabi Beck is a 39 y.o.female presents to the Urgent Care for Pharyngitis Symptoms began: 3 day(s) ago and are show no change. Pain Scale: 8/10 Fever: absent. Associated symptoms: headache, nasal congestion. Fluid intake is modestly decreased. Exposure: no at no exposure . OTC remedies: acetaminophen, ibuprofen. Relief of symptoms: mild. Patient requests an excuse letter for work/school: No Of Note: Patient went to the doctor's office yesterday and was tested for strep, COVID and flu and all were negative. She was told that if her symptoms do not improve, she can come to urgent care. She had a bad night last night, so she wanted to come today to see if she can get anything to help bring relief. Patient also notes that she has some intermittent chest pain. Pain described as stabbing. Rates pain 5/10. Pain is there for a few minutes and then goes away. RINTENDENT CIRCUS RINTENDENT CIRCUS documented in this encounter Plan of Treatment Not on file documented as of this encounter Procedures Procedure Name Priority Date/Time Associated Diagnosis Comments ECG 12 LEAD OUTPATIENT STAT 09/27/2024 8:58 AM SUPERINTENDENT CIRCUS Chest wall pain documented in this encounter Results * ECG 12-LEAD ROUTINE (Non Lab to perform-Today)-STAT (09/27/2024 8:58 AM SUPERINTENDENT CIRCUS) Ventricular Rate 76 BPM MUSE GHP Atrial Rate 76 BPM MUSE GHP P-R Interval 136 ms MUSE GHP QRS Duration 86 ms MUSE GHP QT 398 ms MUSE GHP QTC 447 ms MUSE GHP P [place] 6 degrees MUSE GHP R [place] -1 degrees MUSE GHP T [place] 2 degrees MUSE GHP 09/27/2024 8:58 AM SUPERINTENDENT CIRCUS Narrative MUSE G[facility] - 09/27/2024 9:30 AM SUPERINTENDENT CIRCUS Sinus rhythm Normal ECG When compared with ECG of 08-SEP-2023 08:13, No significant change Confirmed by Ron Osorio ([id number]) on 09/27/2024 9:30:09 AM Procedure Note Ron Osorio MD - 09/27/2024 Sinus rhythm Normal ECG When compared with ECG of 08-SEP-2023 08:13, No significant change Confirmed by Ron Osorio ([id number]) on 09/27/2024 9:30:09 AM us Elbert WYMAN PN ECG ORDERABLES Final Result MUSE [facility] [address] [place] [address] documented in this encounter Visit Diagnoses Diagnosis Chest wall pain Painful respiration Viral URI Acute upper respiratory infections of unspecified site Sore throat Acute pharyngitis documented in this encounter Care Teams Body Make Up Artist Relationship Specialty Start Date End Date Clinician, Not Found, [place] [address] PCP - General 04/21/16 documented as of this encounter
--- OUTSIDE RECORDS SUMMARY | 2024-11-09 20:09 | XMS_ITS | Encounter Summary ---
Author Organization [facility] Address [address] [place] [address] Phone Care Team Providers Care Leasing Machine Tender Name Role Phone Ed December SHEILA ZUNIGA Primary Care Provider [phone] Encounter Details Date Type Department Care Team (Latest Contact Info) Description 09/26/2024 Travel Social History Tobacco Use Types Packs/Day Years Used Date Smoking Tobacco: Former Cigarettes Q uit: 02/18/2009 Smokeless Tobacco: Never Alcohol Use Standard Drinks/Week Comments No 0 (1 standard drink = 0.6 oz pur e alcohol) PHQ-2 Answer Date Recorded PHQ-2 Subtotal 0 07/27/2023 Comments No Sex and Gender Information Value Date Recorded Sex Assigned at Not on file Legal Sex Female 11:56 PM VEGETABLE INSPECTOR Gender Identity Not on file Sexual Orientation Not on file documented as of this encounter Plan of Treatment Not on file documented as of this encounter Goals Goal Patient Goal Type Associated Problems Recent Progress Patient-Stated? Author Mental Health (Customize) Mental Health Other specified personality disorder (mixed personality features) No Pia Doran, FUNERAL PRE NEED CONSULTANT Note: Treatment Plan: Borderline Personality Disorder/Black and [...] Medication Management documented as of this encounter Visit Diagnoses Not on filedocumented in this encounter Additional Health Concerns Infection Onset Date Last Indicated Resolved Time SARS-CoV-2 Rule-Out 09/26/2024 09/26/2024 09/26/19 25 10:40 AM VEGETABLE INSPECTOR Assessment Noted Time PHQ-9 Depression Total Score: 0 07/27/20 23 10:02 AM VEGETABLE INSPECTOR PHQ-2 Depression Total Score: 0 07/27/20 23 10:02 AM VEGETABLE INSPECTOR documented as of this encounter Care Teams Leasing Machine Tender Relationship Specialty Start Date End Date Ed DecemberNADIA, SHEILA [address] [facility] [address] PCP - General Family Medicine 12/12/22 documented as of this encounter
--- OUTSIDE RECORDS SUMMARY | 2024-11-09 20:09 | XMS_ITS | Encounter Summary ---
Author Organization [facility] Address [address] [place] [address] Phone Care Team Providers Care General Repairer Name Role Phone Ed December SHEILA ZUNIGA Primary Care Provider [phone] Encounter Details Date Type Department Care Team (Latest Contact Info) Description 09/26/2024 9:43 AM CORPORATE DEVELOPMENT INTERN - 09/26/2024 11:59 PM CORPORATE DEVELOPMENT INTERN Hospital Encounter [facility] [address] [facility] [address] [place], [place] [address] Low Frausto II, MD [address] [facility] [address] [place], [place] [id number] [place] [address] Discharge Disposition: Discharged to home or self care Social History Tobacco Use Types Packs/Day Years Used Date Smoking Tobacco: Former Cigarettes Q uit: 02/18/2009 Smokeless Tobacco: Never Alcohol Use Standard Drinks/Week Comments No 0 (1 standard drink = 0.6 oz pur e alcohol) PHQ-2 Answer Date Recorded PHQ-2 Subtotal 0 07/27/2023 Comments No Sex and Gender Information Value Date Recorded Sex Assigned at Not on file Legal Sex Female 11:56 PM CORPORATE DEVELOPMENT INTERN Gender Identity Not on file Sexual Orientation Not on file documented as of this encounter Medications at Time of Discharge cetirizine (ZYRTEC) 10 mg oral tabletIndication s:Nasal congestion Take 1 tablet (10 mg) by mouth daily as needed for Allergy Symptoms. 30 tablet 09/26/2024 11:15 AM CORPORATE DEVELOPMENT INTERN 09/26/2024 fluticasone propionate (FLONASE) 50 mcg/act nasal suspensionIndica tions:Nasal congestion Use 1 spray in each nostril daily. 16 g 8 09/19/2024 12:02 PM CORPORATE DEVELOPMENT INTERN 08/01/2024 lisinopril (PRINIVIL; ZESTRIL) 5 mg oral tabletIndication s:Benign essential HTN Take 2 tablets (10 mg) by mouth daily. 30 tablet 09/19/2024 12:02 PM CORPORATE DEVELOPMENT INTERN 08/01/2024 loratadine (CLARITIN) 10 mg oral tabletIndication s:Medication refill TAKE ONE TABLET BY MOUTH EVERY DAY FOR ALLERGIES 90 tablet 3 09/19/2024 12:02 PM CORPORATE DEVELOPMENT INTERN 03/28/2024 ibuprofen (MOTRIN;ADVIL) 400 mg oral TABS Take 1 tablet (400 mg) by mouth every 6 hours as needed for Pain. 60 tablet 2 09/19/2024 12:02 PM CORPORATE DEVELOPMENT INTERN 03/26/2024 albuterol (PROVENTIL HFA) 108 (90 BASE) mcg/act inhalation inhaler Inhale 2 puffs every 4 hours as needed for shortness of breath. 6.7 g 1 01/18/2024 Multiple Vitamin (DAILY MULTIVITAMIN) oral TABSIndications: Nutrition disorder Take 1 tablet by mouth daily. 100 tablet 3 04/11/2024 1:48 PM CDT 06/13/2023 [place]-3 Fatty Acids (FISH OIL) 1200 MG oral capsuleIndicatio ns:Nutrition disorder Take 1 capsule by mouth daily. 60 capsule 6 04/11/2024 1:48 PM CDT 06/13/2023 hydrOXYzine (ATARAX;VISTARIL ) 25 mg oral tablet Take 1 tablet (25 mg) by mouth every 4 hours as needed for Anxiety. 60 tablet 04/15/2024 5 documented as of this encounter Plan of Treatment Not on file documented as of this encounter Goals Goal Patient Goal Type Associated Problems Recent Progress Patient-Stated? Author Mental Health (Customize) Mental Health Other specified personality disorder (mixed personality features) No Pia Doran, FOREIGN EXCHANGE CLERK Note: Treatment Plan: Borderline Personality Disorder/Black and [...] MTD, PER ANTISERUM Routine 09/26/2024 9:40 AM CORPORATE DEVELOPMENT INTERN Sore throat documented in this encounter Results * THROAT GROUP A STREP CULTURE (09/26/2024 9:40 AM CORPORATE DEVELOPMENT INTERN) Final Report No Beta hemolytic Streptococcus Group A, C, or G isolated. [facility] Throat Swab 09/26/2024 9:40 AM CORPORATE DEVELOPMENT INTERN 09/26/2024 1:58 PM CORPORATE DEVELOPMENT INTERN us Low Frausto II, MD LAB MICROBIOLOGY Ashia ring Result [facility] [address] [place] [id number] documented in this encounter Visit Diagnoses Diagnosis Sore throat Acute pharyngitis documented in this encounter Additional Health Concerns Infection Onset Date Last Indicated Resolved Time SARS-CoV-2 Rule-Out 09/26/2024 09/26/2024 09/26/19 25 10:40 AM CORPORATE DEVELOPMENT INTERN Assessment Noted Time PHQ-9 Depression Total Score: 0 07/27/20 23 10:02 AM CORPORATE DEVELOPMENT INTERN PHQ-2 Depression Total Score: 0 07/27/20 10:02 AM CORPORATE DEVELOPMENT INTERN documented as of this encounter Care Teams General Repairer Relationship Specialty Start Date End Date DecemberNADIA CNP [address] [place] [address] PCP - General Family Medicine 12/12/22 documented as of this encounter
--- OUTSIDE RECORDS SUMMARY | 2024-11-09 20:09 | XMS_ITS | Encounter Summary ---
Author Organization [facility] Address [address] [place] [address] Phone Care Team Providers Care Process Pumper Name Role Phone December SHEILA ZUNIGA Primary Care Provider [phone] Encounter Details Date Type Department Care Team (Late st Contact Info) Description 10/28/2024 Orders Only [facility] [address] [place], [place] [id number] Vinita Murrell APRN, CNP [address] [place], [place] [id number] Social History Tobacco Use Types Packs/Day Years Used Date Smoking Tobacco: Former Cigarettes Q uit: 02/18/2009 Smokeless Tobacco: Never Alcohol Use Standard Drinks/Week Comments No 0 (1 standard drink = 0.6 oz pur e alcohol) PHQ-2 Answer Date Recorded PHQ-2 Subtotal 0 07/27/2023 Comments No Sex and Gender Information Value Date Recorded Sex Assigned at Not on file Legal Sex Female 11:56 PM BURGLAR ALARM INSTALLER Gender Identity Not on file Sexual Orientation [...] filedocumented in this encounter Additional Health Concerns Assessment Noted Time PHQ-9 Depression Total Score: 0 07/27/20 10:02 AM BURGLAR ALARM INSTALLER PHQ-2 Depression Total Score: 0 07/27/20 10:02 AM BURGLAR ALARM INSTALLER documented as of this encounter Care Teams Process Pumper Relationship Specialty Start Date End Date DecemberNADIA CNP [address] [place] [address] PCP - General Family Medicine 12/12/22 documented as of this encounter
--- OUTSIDE RECORDS SUMMARY | 2024-11-09 20:09 | XMS_ITS | Clinical Summary ---
Author Organization [facility] Address [address] [place] [address] Care Team Providers Care Liquor Store Manager Name Role Phone Clinician, Not Found MD Primary Care Provider Un available Source Comments You are receiving this document as you are listed as the primary care provider,follow-up provider, or the patient has been referred to you for consultation.This is in compliance with the Medicare andMedicaid EHR Incentive Program,which states Providers who transition their patient to another setting of careor provider of care or refers their patient to another provider of care shouldprovide summary care record for each transition of care or referral. [employer] Allergies No known active allergies Medications acetaminophen (TYLENOL) 500 MG tablet Take 1-2 Tablets (500-1,000 mg) by mouth every 4 hours as needed for Pain. Maximum acetaminophen dose is 4000 mg in 24 hours Active ALBUterol sulfate HFA 108 (90 Base) MCG/ACT inhaler Inhale 1-2 Puffs every 4 hours as needed for Wheezing. Active Loratadine (CLARITIN OR) Active ALBUterol sulfate HFA 108 (90 Base) MCG/ACT inhaler Inhale 1-2 Puffs every 4 hours as needed for Wheezing. 1 Each 09/08/19 24 Active multivitamin (THERAGRAN) tablet Take 1 Tablet by mouth daily. 06/13/20 23 Active [place]-3 Fatty Acids (FISH OIL) 1200 MG capsule Take 1 Capsule (1,200 mg) by mouth daily. 06/13/20 23 Active Calcium Carb-Cholecalcifer ol (OYSTER SHELL CALCIUM W/D) 500-5 MG-MCG TABS Take 1 Tablet by mouth two times a day. 06/13/20 23 Active hydrOXYzine HCl (ATARAX) 25 MG tablet Take 1 Tablet (25 mg) by mouth. 11/10/19 24 Active ibuprofen (MOTRIN) 400 MG tablet Take 1 Tablet (400 mg) by mouth. 03/26/20 24 Active progesterone (PROMETRIUM) 100 MG capsule Take 3 Capsules (300 mg) by mouth daily at bedtime. 01/22/20 24 Active DULoxetine (CYMBALTA) 20 MG capsule Take 1 Capsule (20 mg) by mouth daily. 30 Capsule 3 05/24/20 24 025 Active Additional Information Patient not taking.Reported on 08/01/2024 lisinopril (ZESTRIL) 5 MG tablet Take 1 Tablet (5 mg) by mouth two times a day. Active ondansetron (ZOFRAN-ODT) 4 MG disintegrating tablet Take 1 Tablet (4 mg) by mouth every 8 hours as needed for Nausea. 10 Tablet 08/01/20 24 Active Additional Information Patient not taking.Reported on 09/27/2024 fluticasone propionate (FLONASE) 50 MCG/ACT nasal solution 1 [place] by Nasal route daily. 08/01/20 24 Active cetirizine (ZYRTEC) 10 MG tablet Take 1 Tablet (10 mg) by mouth daily. 09/26/19 25 Active lidocaine viscous (XYLOCAINE) 2 % solution Take 5 mL by mouth every 3 hours as needed for Pain (sore throat). Can dilute with a small amount of water and swish/gargle and spit 60 mL 09/27/19 25 Active Active Problems Problem Noted Date Diagnosed Date Obstructive sleep apnea 02/27/2024 Abnormal uterine bleeding (AUB) 01/09/2024 Menorrhagia with regular cycle 01/09/2024 Fibromyalgia 12/22/2023 Arthralgia of right knee 03/22/2016 Major depression 11/30/2009 Generalized anxiety disorder 11/30/2009 Resolved Problems Problem Noted Date Diagnosed Date Resolved Date Encounter for supervision of other normal 12/08/2005 09/01/2006 Encounters Date Type Department Care Team Description 09/27/2024 9:00 AM BARREL MAKER Office Visit [facility] [address] [place] [address] Aimee Gerard PA-C Chest wall pain; Viral URI; Sore throat from Last 3 Months Immunizations Immunization Administration Dates Next Due Flu Vac Preserv Free (3+yrs) 06/30/2006 Rho(D) - IG, IM 05/08/2006,12/29/2005 Social History Tobacco Use Types Packs/Day Years [...] file Not on file Not on file Last Filed Vital Signs Vital Sign Reading Time Taken Comments Blood Pressure 106/77 09/27/2024 8:45 AM BARREL MAKER Pulse 82 09/27/2024 8:45 AM BARREL MAKER Temperature 36.7 C (98.1 F) 09/27/2024 8:45 AM BARREL MAKER Respiratory Rate 20 09/27/2024 8:45 AM BARREL MAKER Oxygen Saturation 100% 09/27/2024 8:45 AM BARREL MAKER Inhaled Oxygen Concentration - - Weight 81.6 kg (180 lb) 05/24/2024 10:27 AM CDT Height 154.9 cm (5' 1) 01/04/2024 12:50 PM CDT Body Mass Index 34.01 01/04/2024 12:50 PM CDT Plan of Treatment Health Maintenance Due Date Last Done Comments Tuberculosis Screening 1984 Mammogram 1984 Adult Preventive Visit 2002 HepB (1) 2003 Cervical Cancer Screening 02/19/20122010 (Historical Completion), 09/01/2006, 01/06/2006 COVID-19 Vaccine ( season) 2024 Influenza (#1) 2024 05/22/2013, 08/23, 05/26/2009, Additional history exists Diabetes Screening- (based on age and BMI) 08/01/2027 08/01/2024, 05/07/2024, 12/28/2022, Additional history exists DTaP/Tdap/Td (3 - Tdap) 06/02/2033 06/02/2023, 09/20 Zoster/Shingles (1 of 2) 2034 HIV Screening (Preventive Services) Completed 06/14/2018, 09/21/2011, 12/08/2005 Hep C Screening (Preventive Services) Completed 06/14/2018 HPV Vaccine Aged Out No longer eligi ble based on patient's age to complete this topic HepA Aged Out No longer eligi ble based on patient's age to complete this topic Hib Aged Out No longer eligi ble based on patient's age to complete this topic IPV (Polio) Aged Out No longer eligi ble based on patient's age to complete this topic MCV4 Aged Out No longer eligi ble based on patient's age to complete this topic Meningococcal B Aged Out No longer el igible based on patient's age to complete this topic Pneumococcal Aged Out No longer eligi ble based on patient's age to complete this topic Procedures Procedure Name Priority Date/Time Associated Diagnosis Comments ECG 12 LEAD OUTPATIENT STAT 09/27/2024 8:58 AM BARREL MAKER Chest wall pain HIV 1/2 AG/AB 4TH GEN Routine 06/14/2018 7:09 PM CDT Abdominal pain, unspecified abdominal location HEPATITIS C ANTIBODY, WITH REFLEX STAT 06/14/2018 7:09 PM CDT Abdominal pain, unspecified abdominal location PAP TEST, ROUTINE Routine 09/01/2006 11: 20 AM BARREL MAKER Routine Follow-Up from Last 3 Months or Most Recently Relevant to Health Maintenance Results * ECG 12-LEAD ROUTINE (Non Lab to perform-Today)-STAT (09/27/2024 8:58 AM BARREL MAKER) Ventricular Rate 76 BPM [facility]USE [facility] Atrial Rate 76 BPM [facility] P-R Interval 136 ms M[facility] QRS Duration 86 ms MUSE [facility] QT 398 ms M[facility] QTC 447 ms MUSE [facility] P Flushing 6 degrees MUSE [facility] R Flushing -1 degrees MUSE [facility] T Flushing 2 degrees MUSE GHP 09/27/2024 8:58 AM BARREL MAKER Narrative MUSE G[facility] - 09/27/2024 9:30 AM BARREL MAKER Sinus rhythm Normal ECG When compared with ECG of 08-SEP-2023 08:13, No significant change Confirmed by Ron Osorio ([id number]) on 09/27/2024 9:30:09 AM Procedure Note Ron Osorio MD - 09/27/2024 Sinus rhythm Normal ECG When compared with ECG of 08-SEP-2023 08:13, No significant change Confirmed by Ron Osorio ([id number]) on 09/27/2024 9:30:09 AM Elbert WYMAN PN ECG ORDERABLES Final Result Performing Organization Address City/[facility] Co de Phone Number MUSE [address] [place] [address] * HIV 1/2 Ag/Ab 4th Generation (06/14/2018 7:09 PM CDT) HIV-1 p24 Ag and HIV-1/HIV-2 Ab Nonreactive Nonreactive PN SOFT 06/14/2018 7:09 PM CDT 06/14/2018 9:08 PM CDT Narrative PN SOFT - 06/14/2018 9:48 PM CDT Performed at [facility], [address] [place] [place] [address] CLIA number [id number] Neil Kirby PA-C LAB_1 Final Resul t Performing Organization Address [facility] de Phone Number PN SOFT [address] [place] [address] * Hepatitis C Virus [place] In-House (HCAB) (06/14/2018 7:09 PM CDT) Hepatitis C Antibody Nonreactive Nonreactive PN SOFT 06/14/2018 7:09 PM CDT 06/14/2018 9:09 PM CDT Narrative PN SOFT - 06/14/2018 9:53 PM CDT Performed at [facility], [address] [place] [place] [address] CLIA number [id number] Neil Kirby PA-C LAB_1 Final Resul t Performing Organization Address City/[facility] Co de Phone Number PN SOFT [address] [place] [address] * PAP TEST, ROUTINE (09/01/2006 11:20 AM BARREL MAKER) Cytology, Pap (NOTE) Physical Optics Teacher Cytology Report Patient Name: FABI JACKSON Taken: 09/01/2006 Received: 09/04/2006 Reported: 09/06/2006 Physician(s): BERNARDO ELMORE ([id number]) Source of Specimen Liquid routine Pap, cervical/endocervi jimbo: Specimen Adequacy Satisfactory for evaluation. Endocervical component present. Final Cytologic Interpretation/Res ult NEGATIVE FOR INTRAEPITHELIAL LESION OR MALIGNANCY (NILM) Other Cytologic Findings Shift in chrissy suggestive of bacterial vaginosis tlp/09/06/2006 Electronically Signed Out By BERNIE Interiano (ASCP) BERNIE Interiano (ASCP) Pap Smear History Date of Last Menstrual Period: {Not Given} Menstrual History: Post Other Clinical Conditions: LAST PAP: Normal HPV reflex testing requested with interpretation of [employer] 09/01/2006 11:2 0 AM BARREL MAKER 09/04/2006 7:59 AM BARREL MAKER us Bernardo Elmore HOT PLATE [employer] PRESS OFFBEARER, PIGS FEET CLEANER LAB_1 Final Re sult Performing Organization Address City/State/[facility] Co de Phone Number [facility] [address] [address] from Last 3 Months or Most Recently Relevant to Health Maintenance Insurance RETURNED MAIL [id number] [phone] [address] RETURNED [address] [phone] [id number] RETURNED MAIL [id number] [facility] [address] [address] [address]ED [id number] [facility] [address] [address] [address]URNED [id number] [facility] [place] [address] [place] [address] Care Teams Liquor Store Manager Relationship Specialty Start Date End Date Clinician, Not Found, [place] [address] PCP - General 04/21/16
--- OUTSIDE RECORDS SUMMARY | 2024-11-09 20:09 | XMS_ITS | Clinical Summary ---
Author Organization [facility] [place] [address] Phone Care Team Providers Care Oil Field Technician Name Role Phone Ed December SHEILA ZUNIGA Primary Care Provider [phone] Source Comments I AND [employer] is fully rolled out on [employer]. Last update 01/23/09.[facility] Allergies No known active allergies Medications * Be aware that medications may not be up to date as of this document. Always verify current medications with patient. Multiple Vitamin (DAILY MULTIVITAMIN) oral TABSIndications :Nutrition disorder Take 1 tablet by mouth daily. 100 tablet 3 04/11/2024 1:48 PM CDT 3 Active [place]-3 Fatty Acids (FISH OIL) 1200 MG oral [...] Pain. 60 tablet 2 09/19/2024 12:02 PM CLUB FORMER 4 Active loratadine (CLARITIN) 10 mg oral tabletIndicatio ns:Medication refill TAKE ONE TABLET BY MOUTH EVERY DAY FOR ALLERGIES 90 tablet 3 09/19/2024 12:02 PM CLUB FORMER 4 03/29/20 25 Active fluticasone propionate (FLONASE) 50 mcg/act nasal suspensionIndic ations:Nasal congestion Use 1 spray in each nostril daily. 16 g 8 09/19/2024 12:02 PM CLUB FORMER 4 Active lisinopril (PRINIVIL; ZESTRIL) 5 mg oral tabletIndicatio ns:Benign essential HTN Take 2 tablets (10 mg) by mouth daily. 30 tablet 09/19/2024 12:02 PM CLUB FORMER 4 Active cetirizine (ZYRTEC) 10 mg oral tabletIndicatio ns:Nasal congestion Take 1 tablet (10 mg) by mouth daily as needed for Allergy Symptoms. 30 tablet 09/26/2024 11:15 AM CLUB FORMER 5 Active hydrOXYzine pamoate (VISTARIL) 25 mg [...] Major depressive disorder, r ecurrent episode, moderate ([facility]) 12/22/2011 10/24/2013 Borderline personality 04/15/200905/01 Depressive Disorder 04/15/2009 06/04/20 12 Encounters Date Type Department Care Team Description 10/28/2024 Orders Only [facility] [address] [place] [address] Vinita Murrell, DEMOLITION ENGINEER, RESTAUR[employer] 09/26/2024 9:55 AM CLUB FORMER Office Visit [facility] Primary [facility] [address] [place] [address] Krysten Mccullough MD Sore throat (Primary Dx); Nasal congestion 09/26/2024 9:43 AM CLUB FORMER - 09/26/2024 11:59 PM CLUB FORMER Hospital Encounter [facility] [address] [place] [address] Low Frausto II, MD Reflab, Nph Discharge Disposition: Discharged to home or self care 09/26/2024 Travel from Last 3 Months Immunizations Immunization Administration Dates Next Due Influenza Vaccine - Peds (6 - 35 months) Trivalent 09/20/2011,05/26/2009 Influenza Vaccine - Peds (6 - 35 months; Preservative Free) Trivalent 06/30/2006 Influenza Vaccine 6 Months t hrough Adult - Prefilled 06/30/2006 Influenza Vaccine, Unspecified 3,09/20/2011,05/26/2009,2005 Tetanus Toxoid, Reduced Diph theroid Toxoid Acellular Pertussis 06/02/2023,09/20/2011 Family History Medical History Relation Name Comments Psychiatry Maternal Aunt 1 depression Diabetes Maternal Aunt 2 and maternal uncle Relation Name Status Comments Maternal Aunt 1 Maternal Aunt 2 Social History Tobacco Use Types Packs/Day Years [...] on file Legal Sex Female 11:56 PM CLUB FORMER Gender Identity Not on file Sexual Orientation Not on file Last Filed Vital Signs Vital Sign Reading Time Taken Comments Blood Pressure 111/77 09/26/2024 9:35 AM CLUB FORMER Pulse 88 09/26/2024 9:35 AM CLUB FORMER Temperature 36.9 C (98.4 F) 09/26/2024 9:35 AM CLUB FORMER Respiratory Rate 16 03/22/2016 1:41 PM CDT Oxygen Saturation 99% 09/26/2024 9:35 AM CLUB FORMER Inhaled Oxygen Concentration - - Weight 82.2 kg (181 lb 4 oz) 05/07/2024 11:14 AM CDT Height 157 cm (5' 1.8) 05/07/2024 11:14 AM CDT Body Mass Index 33.37 05/07/2024 11:14 AM CDT Plan of Treatment Health Maintenance Due Date Last Done Comments Breast Cancer Screening 1984 Dental Oral Exam 1984 Dental Prophylaxis 1984 Dental X-Ray: Bitewings 1984 Periodontal Maintenance 1998 Imm: HepB (1 of 3 - 19+ 3-dose series) 2003 Imm: Pneumonia Peds or At-Risk less than 50 years (1 of 2 - PCV) 2003 Imm: COVID-19 ( season) 2024 Imm: Flu (#1) 04/21/2024 05/22/2013, 08/23, 09/20/2011, Additional history exists Cervical Cancer Screening Age 30-65 04/02/2026 04/02/2021, 03/22/2016, 09/20/2011 Lipid Screening 05/07/2029 05/07/2024, 06/0 02/2021, 06/17/2016, Additional history exists Imm: DTaP/Tdap (3 - Td or Tdap) 06/02/2033 06/02/2023, 09/20/2011 Imm: Zoster (1 of 2) 2034 HIV Screening Completed 09/21/2011 Imm: HPV Aged Out No longer eligi ble based on patient's age to complete this topic Imm: HepA Aged Out No longer eligi ble based on patient's age to complete this topic Imm: Hib Aged Out No longer eligi ble based on patient's age to complete this topic Imm: Meningitis Aged Out No longer el igible based on patient's age to complete this topic Goals Goal Patient Goal Type Associated Problems [...] MTD, PER ANTISERUM Routine 09/26/2024 9:40 AM CLUB FORMER Sore throat STREP, RAPID GROUP A ANTIGEN, [facility] ONLY Routine 09/26/2024 9:40 AM CLUB FORMER Sore throat NPH COVID+FLU+RSV Routine 09/26/2024 9:4 0 AM CLUB FORMER Sore throat PC LAB NPH LIPID PANEL Routine 05/07/2024 12:00 PM CDT Encounter for health-related screening PC LAB PAP SCREENING, IMAGED, THIN PREP Routine 04/02/2021 10:17 AM CDT Preventative health care HIV 1/2 ANTIBODY Routine 09/21/2011 10:4 0 AM CLUB FORMER Routine physical examination from Last 3 Months or Most Recently Relevant to Health Maintenance Results * THROAT GROUP A STREP CULTURE (09/26/2024 9:40 AM CLUB FORMER) Final Report No Beta hemolytic Streptococcus Group A, C, or G isolated. [facility] Throat Swab 09/26/2024 9:40 AM CLUB FORMER 09/26/2024 1:58 PM CLUB FORMER Low Frausto II, MD LAB MICROBIOLOGY Ashia l Result Performing Organization Address City/[facility]/ZIP Co de Phone Number [facility] [address] [address] * STREP, RAPID GROUP A ANTIGEN, [facility] ONLY (09/26/2024 9:40 AM CLUB FORMER) Strep A Antigen Negative [facility] Comment:This assay was perfo rmed using an FDA-cleared direct antigen test. Strep A Screen performed at [facility] Comment:Testing Performed at [facility] [address] [place] [address] Throat Swab 09/26/2024 9:40 AM CLUB FORMER 09/26/2024 9:43 AM CLUB FORMER Low Frausto II, MD LABORATORY Final Result Performing Organization Address City/[facility]/ZIP Co de Phone Number [facility] [address] [place] [address] * NPH COVID+FLU+RSV (09/26/2024 9:40 AM CLUB FORMER) COVID-19 Not Detected Not Detected [facility] Comment: Testing performed on Cepheid GeneXpert using RT-PCR as authorized by the FDA under an Emergency Use Authorization (EUA) for Coronavirus Disease-2019 during the Public Health Emergency. A Non-Detected test result does not exclude the possibility of infection due to improper specimen collection or organisms that may be below the sensitivity of the test. Influenza A Not Detected Not Detected [facility] Influenza B Not Detected Not Detected [facility] Comment: Testing performed on Cepheid GeneXpert using RT-PCR as authorized by the FDA under an Emergency Use Authorization (EUA) for Coronavirus Disease-2019 during the Public Health Emergency. A Non-Detected test result does not exclude the possibility of infection due to improper specimen collection or organisms that may be below the sensitivity of the test. RSV Not Detected Not Detected [facility] Comment: Testing performed on Cepheid GeneXpert using RT-PCR as authorized by the FDA under an Emergency Use Authorization (EUA) for Coronavirus Disease-2019 during the Public Health Emergency. A Non-Detected test result does not exclude the possibility of infection due to improper specimen collection or organisms that may be below the sensitivity of the test. Nasopharyngeal Swab 09/26/19 9:40 AM CLUB FORMER 09/26/2024 9:43 AM CLUB FORMER Narrative [facility] - 09/26/2024 10:40 AM CLUB FORMER Includes COVID, FLU and RSV Low Frausto II, MD LABORATORY Final Result Performing Organization Address City/State/[facility] Co de Phone Number [facility] [address] [place] [address] * (ABNORMAL) NPH LIPID PANEL (05/07/2024 12:00 PM CDT) Cholesterol 165 <=200 mg/dL [facility] Comment: Desirable Interpretive Data <200 Desirable 200-239 Borderline high >=240 High Triglyceride 114 <=150 mg/dL [facility] Comment: Normal Interpretive Data <150 Normal 150-199 Borderline high 200-499 High >=500 Very high HDL 39(L) 40 - 60 mg/dL [facility] Comment: Abnormal Interpretive Data Normal > 40 Male > 50 Female Non-HDL Cholesterol Calculated 126 <=130 mg/dL [facility] Comment: Desirable Interpretive Data <130 Desirable 130-159 Above desirable 160-189 Borderline high 190-219 High >=220 Very high Calc LDL 103(H) <=100 mg/dL [facility] Comment: Above desirable Interpretive Data <100 Desirable 100-129 Above desirable 130-159 Borderline high 160-189 high >=190 Very High Blood 05/07/2024 12:0 0 PM CDT 05/07/2024 12:59 PM CDT us May Ed ZUNIGA CNP LABORATORY Final Result [facility] [address] [id number] * PAP TEST (04/02/2021 10:17 AM CDT) Pap Final Pap Smear Report Collection Date: 04/02/2021 10:17 CDT Ordering Physician: IVA CHAMBERLAIN Received Date: 04/05/2021 08:38 CDT Accession Number: [id number] Pap Test Report Final Diagnosis: NEGATIVE FOR INTRAEPITHELIAL LESION OR MALIGNANCY High-risk HPV co-testing will be performed and separately reported by the [facility] Clinical Laboratory. * Report Electronically Signed By * BERNIE Morales (ASCP) Screening Performed By: BERNIE Morales (ASCP) [facility] 04.08.2021 14:58 Diagnosis Comment: _ This Pap test was screened by the ThinPrep Imaging System ([employer].) prior to manual review by a sas developer and/or pathologist. - This Pap test is a screening test with inherent false negative and false positive results and should not be used as the sole means to detect cervical cancer. Adequacy Interpretation: Satisfactory for evaluation, endocervical component identified. Specimen Type: ThinPrep liquid-based Pap test [facility] AP Specimen CERVIX UTERI STRUCTURE / Unknown 04/02/2021 10:17 AM CDT 04/05/2021 8:38 AM CDT Comment:PAP TEST us Iva Chamberlain APRN, CNP LAB PATHOLOGY Final Resu lt [facility] [address] [place] [address] * HIV 1/2 ANTIBODY (09/21/2011 10:40 AM CLUB FORMER) HIV Ab Non Reactive Non Reactive [facility] Comment: Performance characteristics have not been established with this test on pat ients less than 2 years of age. Blood specimen (specimen) 09/21/2011 10:40 AM CLUB FORMER 09/21/2011 1:42 PM CLUB FORMER us Anca Rinaldi MD LABORATORY Final Result Performing Organization Address [facility] Co de Phone Number [address] [address] from Last 3 Months or Most Recently Relevant to Health Maintenance Care Teams Oil Field Technician Relationship Specialty Start Date End Date DecemberNADIA CNP [address] [place] [address] PCP - General Family Medicine 12/12/22
--- OUTSIDE RECORDS SUMMARY | 2024-11-09 20:09 | XMS_ITS | Encounter Summary ---
Author Organization [facility] Address [address] [place] [address] Phone Care Team Providers Care Dairy Hand Name Role Phone Jana Chamberlain APRN, CNP Primary Care Provider [phone] Paulina Ward APRN, CNP Primary Care Provider [phone] Encounter Details Date Type Department Care Team (Late st Contact Info) Description 05/19/2022 In-Clinic Rx [facility] [address] [place] [address] Jackie Kellogg MD [address] [place], [place] [id number] Social History Tobacco Use Types Packs/Day Years Used Date Smoking Tobacco: Former Cigarettes Q uit: 02/18/2009 Smokeless Tobacco: Never Alcohol Use Standard Drinks/Week Comments No 0 (1 standard drink = 0.6 oz pur e alcohol) PHQ-2 Answer Date Recorded PHQ-2 Subtotal 2 01/24/2022 Comments No Sex and Gender Information Value Date Recorded Sex Assigned at Not on file Legal Sex Female 11:56 PM OIL DISPENSER Gender Identity Not on file Sexual Orientation [...] Rule-Out 09/26/2024 09/26/2024 09/26/19 25 10:40 AM OIL DISPENSER Assessment Noted Time PHQ-9 Depression Total Score: 022 10:16 AM CDT PHQ-2 Depression Total Score: 2 01/25/20 22 10:16 AM CDT documented as of this encounter Care Teams Dairy Hand Relationship Specialty Start Date End Date Jana Chamberlain APRN, CNP PCP - General 01/25/21 12/11/22 Paulina Ward APRN, CNP [address] [place] [address] PCP - General Family Medicine 12/12/22 documented as of this encounter
[2024-11-09 21:53] LABS: Chlamydia DNA Amplified* NOT DETECTED (No Detected); GC DNA Amplified* NOT DETECTED (No Detected)
--- NOTE | 2024-11-11 10:42 | ED.GENADULT ---
HPI - General Adult General Date Seen: 11/09/24 Chief complaint: Urogenital Problems, Female Stated complaint: burning when peeing Time Seen by Provider: 11/09/24 19:50 History of Present Illness HPI narrative: Addendum to patient's recent ER visit Urine culture came back today showing ESBL E coli. She was prescribed Macrobid and fortunately this isolate is sensitive to nitrofurantoin. No change in antibiotics is necessary. However with an unusual pathogen on urine, I called the patient to inform her about the ESBL E coli culture result. She did not answer her phone so voicemail was left for her to call back to the ER. Related Data Home Medications ?Medication ?Instructions ?Recorded ?Confirmed hydroxyzine HCl 10 mg tablet 10 mg PO QHS 11/09/24 11/09/24 Allergies Allergy/AdvReac Type Severity Reaction Status Date / Time No Known Drug Allergies Allergy Verified 11/09/24 19:25 PFSH PFSH Social History Smoking Status: Never smoker Do you use any of these nicotine containing products: None How often do you have a drink containing alcohol: never How often do you have six or more drinks on one occasion: Never AUDIT-C Alcohol total score: 0 Non-prescribed substance use: denies use Course Vital Signs Vital signs: Initial Vital Signs Pulse Rate 93 11/09/24 19:21 Pulse Rhythm Regular 11/09/24 19:21 Respiratory Rate 18 11/09/24 19:21 Blood Pressure 128/97 H 11/09/24 19:21 Blood Pressure Mean 107 H 11/09/24 19:21 Blood Pressure Position Sitting 11/09/24 19:21 Pulse Oximetry 98 11/09/24 19:21 Oxygen Delivery Method Room Air 11/09/24 19:21 Vital Signs Pulse Rate 93 11/09/24 19:21 Respiratory Rate 18 11/09/24 19:21 Blood Pressure 128/97 H 11/09/24 19:21 Pulse Oximetry 98 11/09/24 19:21 Oxygen Delivery Method Room Air 11/09/24 19:21 Temperature 98 F 11/09/24 20:01 Pulse Rate 93 11/09/24 19:21 Respiratory Rate 18 11/09/24 19:21 Blood Pressure 128/97 H 11/09/24 19:21 Pulse Oximetry 98 11/09/24 19:21 Oxygen Delivery Method Room Air 11/09/24 19:21 Medications Administered Medications: Discontinued Medications Generic Name Dose Route Start Last Admin Trade Name Javier PRJoey Reason Stop Dose Admin Phenazopyridine HCl 200 mg 11/09/24 19:57 11/09/24 20:05 Phenazopyridine Hcl 200 Mg Tablet PO 11/09/24 19:58 200 mg ONCE ONE Administration Medical Decision Making Lab Data Labs: Lab Results 11/09/24 11/09/24 Range/Units 19:28 19:58 Urine Color Yellow (Yellow) Urine Appearance Cloudy A (Clear) Urine pH 6.0 (5.0-8.5) Ur Specific [place] 1.020 (1.000-1.030) Urine Protein 1+ A (Negative) Urine Glucose (UA) Negative (Negative) Urine Ketones Negative (Negative) Urine Blood 1+ A (Negative) Urine Nitrite Positive A (Negative) Urine Bilirubin Negative (Negative) Urine Urobilinogen 0.2 (0.2-1.0) Ur Leukocyte Esterase 3+ A (Negative) Urine RBC 10-25 A (0-2) Urine WBC >100 A (0-5) Ur Squamous Epith Cells Few (None-Few) Urine Bacteria Moderate A (None) C.trachomatis Ampl DNA NOT DETECTED (No Detected) N.gonorrhoeae Ampl DNA NOT DETECTED (No Detected) Lab Acknowledgement Test Added Discharge Plan Discharge Clinical Impression: Urinary tract infection Qualifiers: Urinary tract infection type: acute cystitis Patient Disposition: Home, Self-Care Condition: Unchanged Additional Instructions: Start Macrobid tonight. I put that in our vending machine out front. Increase her fluid intake so that you are urinating frequently. You should have relief with pain of urination after the medication Pyridium in the ER tonight. Seek medical attention or return for fever, worsening symptoms and as needed. Prescriptions: No Action hydroxyzine HCl 10 mg tablet 10 mg PO QHS Stand Alone Forms: MyHealth Info Instructions
== END 2024-11-09 20:08 | disposition home or self-care (01) ==
LOC: ED 20:06
PROVIDERS: Emergency Provider Family Medicine
DX: N39.0 Urinary tract infection, site not specified (principal)
CPT/HCPCS: 81001; 87086; 87491; 87591; 99281; 99283; A9270